=== PATIENT | female | born 1960 | race Caucasian/White ===

== ENCOUNTER → 2017-12-29 | Outpatient (CLI) | payer MEDICARE ==
--- NOTE | 2017-12-29 10:44 | RADIOLOGY REPORT (SQ) ---
EXAM DESCRIPTION: CT LUNG CANCER SCREENING COMPLETED DATE/TIME: 12/29/2017 9:24 am REASON FOR STUDY: NICOTINE DEPENDENCE Z12.2 ENCNTR SCREEN FOR MALIGNANT NEOPLASM OF RESPIRATORY OR Z12.31 ENCNTR SCREEN MAMMOGRAM FOR MALIGNANT NEOPLASM OF EDMOND F17.210 NICOTINE DEPENDENCE, CIGARETTE S, UNCOMPLICATED Has the patient had a Chest CT scan within the past year? No Was the patient offered tobacco cessation counseling? Yes Was the patient engaged in shared decision making for this test? Yes Does the patient have signs or symptoms of Lung Cancer? No Is the patient a smoker? Yes How many packs per year? 450 How many years since quitting smoking? Not applicable Patients age: 57 COMPARISON: None. TECHNIQUE: Low Dose CT scan performed of the chest without intravenous contrast for purposes of scre ening for lung cancer. Images reviewed with lung, soft tissue and bone windows. Reconstructed coron al and sagittal MPR images reviewed. All images stored on PACS. All CT scanners at this facility use dose modulation, iterative reconstruction, and/or weight based d osing when appropriate to reduce radiation dose to as low as reasonably achievable (ALARA). [facility]: Dose Right [facility]: CareDose [facility]: Dose Right [facility]: Teradose 4D [facility]: [employer] RADIATION DOSE: CT Rad equipment meets quality standard of care and radiation dose reduction techniq ues were employed. CTDIvol: 2.1 mGy. DLP: 73 mGy-cm. mGy. . LIMITATIONS: No technical limitations. FINDINGS: LUNG NODULES: Less than 4 mm right upper lobe nodule image 143. Pleural-based less than 5 mm nodule along the right lower lobe/major fissure image 247. REMAINING LUNGS AND PLEURA: No pleural effusions or calcifications. No pneumothorax. Obstructiv e lung disease is present with bandlike scarring at both bases. HILAR AND MEDIASTINAL STRUCTURES: No identified masses. No abnormal nodes. HEART AND VASCULAR STRUCTURES: No aortic aneurysm. No pericardial effusion. No cardiac devices. CORONARY ARTERY CALCIFICATIONS: No significant calcifications. UPPER ABDOMEN, THYROID, BONES, OTHER SOFT TISSUES: No significant findings. IMPRESSION: BENIGN FINDINGS IN THE LUNGS. NO OTHER CLINICALLY SIGNIFICANT/POTENTIALLY CLINICALLY SIGNIFICANT FINDINGS LUNGRADS: LUNGRADS: 2 BENIGN APPEARANCE OR BEHAVIOR. NODULES WITH A VERY LOW LIKELIHOOD OF BECOMING A CLINICALLY ACTIVE CANCER DUE TO SIZE OR LACK OF GROWTH. MODIFIER: NONE. RECOMMENDATION: Continue annual screening with LDCT in 12 months. COMMENT: CRITERIA: Solid nodule(s): < 6 mm; new < 4 mm. Part solid nodule(s): < 6 mm total diameter on baseline screening. Non solid nodule(s) (GGN): < 20 mm OR ? 20 and unchanged or slowly growing. Category 3 or 4 modules unchanged for ? 3 months. TECHNICAL DOCUMENTATION: JOB ID: [id number] Quality ID # [id number]: Final reports with documentation of one or more dose reduction techniques (e.g., Au tomated exposure control, adjustment of the mA and/or kV according to patient size, use of iterative reconstruction technique) 2010 [facility] Reading location - IP/workstation name: [email or web address]
--- NOTE | 2017-12-29 15:59 | WOMENS IMAGING REPORT ---
EXAM DESCRIPTION: BILAT SCREENING MAMMO W/CAD COMPLETED DATE/TIME: 12/29/2017 10:17 am REASON FOR STUDY: SCREENING MAMMO Z12.2 ENCNTR SCREEN FOR MALIGNANT NEOPLASM OF RESPIRATORY OR Z12. 31 ENCNTR SCREEN MAMMOGRAM FOR MALIGNANT NEOPLASM OF [place]D F17.210 NICOTINE DEPENDENCE, CIGARETTES, U NCOMPLICATED COMPARISON: 2008 to 2015 TECHNIQUE: Standard craniocaudal and mediolateral oblique views of each breast recorded using BISciencea l acquisition. LIMITATIONS: None. FINDINGS: No masses, calcifications or architectural distortion. No areas of suspicion. Read with the assistance of CAD. .[facility] - R2 Cenova Version 1.3 .[facility] Imaging - R2 Cenova Version 1.3 .[facility] - R2 Cenova Version 2.4 .[facility] - R2 Cenova Version 2.4 .[facility] - R2 Status Controller Version 9.2 IMPRESSION: NORMAL MAMMOGRAM. BIRADS 1. BREAST DENSITY: b. There are scattered areas of fibroglandular density. BIRAD: 1 NEGATIVE RECOMMENDATION: ROUTINE SCREENING COMMENT: The patient has been notified of the results by letter per SA requirements. Additional no tification policies are in place for contacting patient with suspicious or incomplete findings. Quality ID #[id number]: The [employer] recommends an annual screening mammogram for women aged 40 years or over. This facility utilizes a reminder system to ensure that all patients receive reminder letters, and/or direct phone calls for appointments. This includes reminders for routine scr eening mammograms, diagnostic mammograms, or other Breast Imaging Interventions when appropriate. Th is patient will be placed in the appropriate reminder system. The [employer] (ACR) has developed recommendations for screening MRI of the breast s in certain patient populations, to be used in conjunction with mammography. Breast MRI surveillanc e may be appropriate for women with more than 20% lifetime risk of developing breast cancer as deter mined by genetic testing, significant family history of the disease, or history of mantle radiation f or Hodgkins Disease. ACR Practice Guidelines 2008. TECHNICAL DOCUMENTATION: FINDING NUMBER: (1) ASSESSMENT: (1) JOB ID: [id number] [employer]- All Rights Reserved Reading location - IP/workstation name: [email or web address]
== END ==
LOC: RAD 09:43
PROVIDERS: ATTEND Internal Medicine
DX: Z12.31 Encounter for screening mammogram for malignant neoplasm of breast (principal); Z12.2 Encounter for screening for malignant neoplasm of respiratory organs; F17.210 Nicotine dependence, cigarettes, uncomplicated
CPT/HCPCS: 77067; G0297

== ENCOUNTER → 2018-03-23 | Outpatient (CLI) | payer MEDICARE ==
--- NOTE | 2018-03-23 16:33 | RADIOLOGY REPORT (SQ) ---
EXAM DESCRIPTION: PHYSIO ARTERIAL LTD COMPLETED DATE/TIME: 03/23/2018 3:30 pm REASON FOR STUDY: RACHEL, POLYNEUROPATHY G62.9 POLYNEUROPATHY, UNSPECIFIED COMPARISON: None. EXAM PARAMETERS: TECHNIQUE: Brachial blood pressure obtained. Pressures obtained of the peripheral v essels at the level of the ankle. Ankle brachial indices calculated. LIMITATIONS: None. FINDINGS: RIGHT RACHEL: 0.85 to 0.91 LEFT RACHEL: 0.82 to 0.98 IMPRESSION: Mildly depressed bilateral RACHEL, indicates mild lower extremity arterial obstructive crandall ge COMMENT: [facility] NORMAL: Greater than 1.0 MINIMAL DISEASE: 0.9 to 1.0 CLAUDICATION: 0.5 to 0.9 SEVERE ARTERIAL DISEASE: Less than 0.5 [facility] NORM[facility]: Greater than 1.0 (1.2 If Heavy Calcifications) NORMAL TO MILD ISCHEMIA: 0.8 to 1.0 MODERATE ISCHEMIA: 0.4 to 0.8 SEVERE ISCHEMIA: Less than 0.4 TECHNICAL DOCUMENTATION: JOB ID: [id number] [employer]- All Rights Reserved Reading location - IP/workstation name: [email or web address]
== END ==
LOC: SP 13:34
PROVIDERS: ATTEND Internal Medicine
DX: G62.9 Polyneuropathy, unspecified (principal)
CPT/HCPCS: 93922

== ENCOUNTER 2018-07-26 07:11 | Day surgery (SDC) | payer MEDICARE ==
[2018-07-26] MEDS ORDERED: PROPOFOL INJ 200 MG/20 ML VIAL IV ONE (07:27)
[2018-07-26 09:16] VITALS: BP 151/62
--- NOTE | 2018-07-26 13:18 | Operative Report ---
Operative Report DATE OF SURGERY: 07/26/18 Operative Report: The risks, benefits and alternatives of the procedure including the risk of bleeding, perforation requiring surgery are explained to the patient in detail and informed consent is obtained. Patient is brought back to the endoscopy suite and placed in the left, lateral decubital position. Timeout was called. Propofol medication is administered. A rectal examination is done which did not reveal any masses, tears or fissures. An Olympus videoscope was introduced into the patient's rectum. The scope was then carefully advanced all the way to the cecum. The cecum was identified by the usual anatomical landmarks including the ileocecal valve as well as the appendiceal office. Prep was poor. Scope was then sequentially pulled back via the various segments of the colon including the ascending colon, hepatic flexure, transverse colon, splenic flexure, descending colon and finally into the rectosigmoid portions of the colon. Retroflexion maneuvers performed. The risks benefits and alternatives of the procedure explained to the patient in detail and informed consent is obtained.A GIF Olympus video scope was inserted into the patient's mouth and hypopharynx, the esophagus is identified intubated and insufflated, the scope was then advanced through the esophagus stomach and duodenum ,retroflexion maneuver is done, the esophagus stomach and first and second portions of the duodenum examined PREOPERATIVE DIAGNOSIS: Personal history of polyps. Dysphagia POSTOPERATIVE DIAGNOSIS: Schatzki's ring status post breakage. Gastritis status post biopsy for Helicobacter pylori. Duodenitis. Right side colon inflammation status post biopsy rule out lymphocytic, microscopic, collagenous colitis OPERATION: Colonoscopy with biopsy. EGD with biopsy SURGEON: HALEIGH ELENA ANESTHESIA: LMAC TISSUE REMOVED OR ALTERED: As noted above. COMPLICATIONS: None. ESTIMATED BLOOD LOSS: None. INTRAOPERATIVE FINDINGS: As noted above. PROCEDURE: Patient tolerated the procedure well. No immediate postprocedure complications are noted. Patient discharged in good condition. Discharge date 07/26/2018. Discharge diet: Regular. Discharge activity: Regular. 2-3-week follow-up to discuss findings. Patient is instructed call the office or proceed to the emergency room should there be any further questions. Wait on the pathology. 5-year surveillance colonoscopy.
== END 2018-07-26 09:05 | disposition home or self-care (01) ==
LOC: END 07:11
PROVIDERS: ATTEND Internal Medicine Gastroenterology
DX: K22.2 Esophageal obstruction (principal); K20.9 Esophagitis, unspecified; K29.50 Unspecified chronic gastritis without bleeding; K29.80 Duodenitis without bleeding; K52.9 Noninfective gastroenteritis and colitis, unspecified; K92.1 Melena; Z86.010 Personal history of colon polyps; I10 Essential (primary) hypertension; E11.9 Type 2 diabetes mellitus without complications; J44.9 Chronic obstructive pulmonary disease, unspecified; F17.210 Nicotine dependence, cigarettes, uncomplicated; M19.90 Unspecified osteoarthritis, unspecified site; E11.40 Type 2 diabetes mellitus with diabetic neuropathy, unspecified; Z79.899 Other long term (current) drug therapy; Z79.51 Long term (current) use of inhaled steroids; Z79.4 Long term (current) use of insulin; Z91.040 Latex allergy status
CPT/HCPCS: 43239; 45380; 82962; 88342 ×2; 88305 ×2; 88313 ×2; J2704; 813

== ENCOUNTER 2018-10-20 07:18 | Inpatient (IN) | payer MEDICARE ==
[2018-10-20] MEDS ORDERED: IPRATROPIUM/ALBUTEROL 0.5-2.5 MG/3 ML AMPUL NEB ONE (07:47)
--- NOTE | 2018-10-20 07:51 | ER Document Report ---
ED Respiratory Problem - General Chief Complaint: Shortness Of Breath Stated Complaint: SHORTNESS OF BREATH Time Seen by Provider: 10/20/18 07:34 Primary Care Provider: ASHLEY FRANKLIN MD [Primary Care Provider] - Follow up as needed Notes: 58-year-old female presents to the emergency part complaining of difficulty breathing. Patient stated began last night. The patient stated she felt some heaviness in her chest and tightness. She began having trouble breathing. When EMS arrived patient had sats in the 60s. They gave the patient aerosol treatment and a dose of Solu-Medrol. The patient has a history of a broken foot and is in a walking boot on the left. She denies any fever chills or sore throat ever she has had some urinary symptoms and saw her primary care doctor yesterday and placed on antibiotic for that. Denies any abdominal pain. Stated the heaviness she felt in her chest would let her breathe she rated as moderate to severe. She denies any chest pain proper. TRAVEL OUTSIDE OF THE [place] IN LAST 30 DAYS: No - Related Data Allergies/Adverse Reactions: latex Allergy (Severe, Verified 07/26/18 06:51) Anaphylaxis Past Medical History - Social History Smoking Status: Former Smoker Family History: Reviewed & Not Pertinent - Past Medical History Cardiac Medical History: Reports: Hx Hypertension Denies: Hx Coronary Artery Disease, Hx Heart Attack Pulmonary Medical History: Reports: Hx Asthma, Hx COPD Denies: Hx Bronchitis, Hx Pneumonia Neurological Medical History: Denies: Hx Cerebrovascular Accident, Hx Seizures Endocrine Medical History: Reports: Hx Diabetes Mellitus Type 2 Musculoskeletal Medical History: Reports Hx Arthritis - NECK - Immunizations Hx Diphtheria, Pertussis, Tetanus Vaccination: Yes Hx Pneumococcal Vaccination: 09/21/14 Review of Systems - Review of Systems Constitutional: denies: Chills, Fever Cardiovascular: Chest pain, Dyspnea. denies: Edema Respiratory: Cough, Short of breath, Wheezing Genitourinary: Dysuria Neurological/Psychological: denies: Headaches -: Yes All other systems reviewed and negative Physical Exam - Vital signs Vitals: Pulse Resp BP Pulse Ox 78 20 150/70 H 89 L 10/20/18 07:31 10/20/18 07:31 10/20/18 07:31 10/20/18 07:31 - Notes Notes: GENERAL_APPEARANCE: well_nourished, alert, cooperative VITALS: reviewed, see vital signs table. HEAD: no_swelling\tenderness on the head. EYES: PERRL, EOMI, conjunctiva_clear. NOSE: Clear_nasal_discharge. MOUTH: (-)decreased moisture. THROAT: no_throat_inflammation, no_airway_obstruction. no_lymphadenopathy NECK: supple, no_neck_tenderness, (-)thyromegaly. BACK: no_back_tenderness. CHEST_WALL: no_chest_tenderness. LUNGS: Scattered_wheezing, no_rales, no_rhonchi, (-)accessory muscle use, good air exchange bilateral. HEART: normal_rate, normal_rhythm, normal_S1, normal_S2, (-)S3, (-)S4, no_m urmur, no_rub. ABDOMEN: normal_BS, soft, no_abd_tenderness, (-)guarding, (-)rebound, no_organomegaly, no_abd_masses. EXTREMITIES: good pulses in all_extremities, left leg in a boot, no_edema. SKIN: warm, dry, good_color, no_rash. MENTAL_STATUS: speech_clear, oriented_X_3, normal_affect, respond s_appropriately to questions. Course - Re-evaluation Re-evalutation: 10/20/18 07:50 58-year-old female arrives with difficulty breathing. Patient was wheezing will give her aerosol treatments here EMS already give her aerosol and Solu-Medrol. Oxygen. She has an oxygen requirement of 4 L to maintain a sat of 90% here. She does have a boot on will CT the chest to rule out PE. 10/20/18 10:02 Patient is doing better after aerosol treatments steroids and antibiotics. Patient still has a 3-4 L oxygen requirement. Patient was incidentally found to have a urinary tract infection the Rocephin should cover this. The patient is doing better but with the oxygen requirements we will hospitalize the patient continue with pulmonary toilet aerosol treatments steroids. I spoke with the hospitalist service who is in agreement for hospitalization. - Vital Signs Vital signs: Temp Pulse Resp BP Pulse Ox 98.1 F 78 20 150/70 H 89 L 10/20/18 07:47 10/20/18 07:31 10/20/18 07:31 10/20/18 07:31 10/20/18 07:31 - Laboratory Result Diagrams: 10/20/18 07:40 10/20/18 07:40 Laboratory results interpreted by me: 10/20/18 10/20/18 10/20/18 07:40 07:40 07:40 Hgb 15.6 H VBG pH 7.29 L Creatinine 0.51 L Glucose 252 H Urine Glucose (UA) Urine Blood Ur Leukocyte Esterase Urine Ascorbic Acid 10/20/18 09:21 Hgb VBG pH Creatinine Glucose Urine Glucose (UA) >=500 H Urine Blood SMALL H Ur Leukocyte Esterase LARGE H Urine Ascorbic Acid 20 H - Diagnostic Test Radiology reviewed: Reports reviewed Radiology results interpreted by me: 10/20/18 10:02 Chest X-Ray 10/20/18 07:46 IMPRESSION: 1. Mild prominence of the interstitial markings, particularly in the lower lung zones, likely correlate to the LDCT chest examination dated 12/29/2017. 2. No acute pulmonary consolidation. Chest/Abdomen CTA 10/20/18 07:47 IMPRESSION: 1. Negative examination for pulmonary embolism. 2. Heterogeneous opacity of the right lung base with underlying scarring or atelectasis, findings concerning for infection or aspiration. 3. Emphysema. 4. Coronary artery disease. - EKG Interpretation by Me EKG shows normal: Sinus rhythm Rate: Normal - 79 Rhythm: NSR When compared to previous EKG there are: No significant change Discharge - Discharge Clinical Impression: COPD with exacerbation, UTI (urinary tract infection) Condition: Fair Disposition: ADMITTED INPATIENT Admitting Provider: Hospitalist Unit Admitted: Telemetry Referrals: ASHLEY FRANKLIN MD [Primary Care Provider] - Follow up as needed
--- NOTE | 2018-10-20 07:58 | EKG REPORT ---
SEVERITY:- ABNORMAL ECG - SINUS RHYTHM PROBABLE INFERIOR INFARCT, OLD CONSIDER ANTERIOR INFARCT : Confirmed by: Don Madrid MD 20-Oct-2018 07:57:01
[2018-10-20 08:01] LABS: ABSOLUTE EOSINOPHILS # (AUTO) 0.1 10^3/uL (0.0-0.6); ABSOLUTE MONOCYTES (AUTO) 0.3 10^3/uL (0.1-1.4); ABSOLUTE NEUT (AUTO) 5.2 10^3/uL (1.7-8.2); BASOPHILS % (AUTO) 0.6 % (0-2); EOSINOPHILS % (AUTO) 1.8 % (0-6); HEMATOCRIT 46.7 % (36.0-47.0); HEMOGLOBIN 15.6 g/dL (12.0-15.5); MEAN CORPUSCULAR HEMOGLOBIN 29.6 pg (27.0-33.4); MEAN CORPUSCULAR HGB CONC 33.4 g/dL (32.0-36.0); MEAN CORPUSCULAR VOLUME 89 fl (80-97); MONOCYTES % (AUTO) 4.3 % (3-13); PLATELET COUNT 213 10^3/uL (150-450); RED BLOOD COUNT 5.27 10^6/uL (3.72-5.28); RED CELL DISTRIBUTION WIDTH 13.7 % (11.5-14.0); SEGMENTED NEUTROPHILS % (AUTO) 67.3 % (42-78); TOTAL CELLS COUNTED % (AUTO) 100 %; VENOUS BLOOD HCO3 28.3 mmol/L (20-32); VENOUS BLOOD PCO2 60.4 mmHg (35-63); VENOUS BLOOD PH 7.29 (7.30-7.42); WHITE BLOOD COUNT 7.7 10^3/uL (4.0-10.5)
[2018-10-20] MEDS: ALBUTEROL SULFATE 0.083% NEB 2.5 MG/3 ML AMPUL NEB SCH (08:03)
[2018-10-20 08:10] LABS: INTERNATIONAL RATION (INR) 0.83; PROTHROMBIN TIME 11.8 SEC (11.4-15.4)
--- NOTE | 2018-10-20 08:18 | RADIOLOGY REPORT (SQ) ---
EXAM DESCRIPTION: CHEST SINGLE VIEW COMPLETED DATE/TIME: 10/20/2018 7:52 am REASON FOR STUDY: SOB COMPARISON: LDCT chest examination dated 12/29/2017. EXAM PARAMETERS: NUMBER OF VIEWS: One view. TECHNIQUE: Single frontal radiographic view of the chest acquired. RADIATION DOSE: NA LIMITATIONS: None. FINDINGS: LUNGS AND PLEURA: Mild prominence of the interstitial markings, particularly in the lower lung zones. These findings likely correlate to the LDCT chest examination dated 12/29/2017 and are o n a chronic basis. No acute pulmonary consolidation. No pneumothorax or pleural effusion. MEDIASTINUM AND HILAR STRUCTURES: No masses. Contour normal. HEART AND VASCULAR STRUCTURES: Heart normal in size. Normal vasculature. BONES: No acute findings. HARDWARE: Anterior fusion visualized mid-lower cervical spine OTHER: No other significant finding. IMPRESSION: 1. Mild prominence of the interstitial markings, particularly in the lower lung zones, likely correlate to the LDCT chest examination dated 12/29/2017. 2. No acute pulmonary consolidation. TECHNICAL DOCUMENTATION: JOB ID: [id number] [employer]- All Rights Reserved Reading location - IP/workstation name: [email or web address]
[2018-10-20 08:20] LABS: ALANINE AMINOTRANSFERASE 27 U/L (9-52); ALBUMIN 4.1 g/dL (3.5-5.0); ALKALINE PHOSPHATASE 112 U/L (38-126); ANION GAP 8 (5-19); ASPARTATE AMINO TRANSFERASE 15 U/L (14-36); BILIRUBIN,DIRECT 0.3 mg/dL (0.0-0.4); BILIRUBIN,TOTAL 0.4 mg/dL (0.2-1.3); BLOOD UREA NITROGEN 14 mg/dL (7-20); CALCIUM 9.5 mg/dL (8.4-10.2); CARBON DIOXIDE 30 mmol/L (22-30); CHLORIDE 103 mmol/L (98-107); GLUCOSE 252 mg/dL (75-110); POTASSIUM 4.8 mmol/L (3.6-5.0); SODIUM 141.2 mmol/L (137-145); TOTAL PROTEIN 6.8 g/dL (6.3-8.2)
[2018-10-20 08:31] LABS: NT PRO BNP 46 pg/mL (5-900)
[2018-10-20 08:32] LABS: TROPONIN I < 0.012 ng/mL
--- NOTE | 2018-10-20 09:18 | RADIOLOGY REPORT (SQ) ---
EXAM DESCRIPTION: CTA CHEST COMPLETED DATE/TIME: 10/20/2018 8:59 am REASON FOR STUDY: SOB COMPARISON: Chest radiograph, 10/20/2018, CT chest, 12/29/2017 TECHNIQUE: CT scan of the chest performed using helical scanning technique with dynamic intravenous contrast injection. Images reviewed with lung, soft tissue and bone windows. Reconstructed coronal and sagittal MPR images reviewed. Additional 3 dimensional post-processing performed to develop Maximal Intensity Projection images (AK P). All images stored on PACS. All CT scanners at this facility use dose modulation, iterative reconstruction, and/or weight based d osing when appropriate to reduce radiation dose to as low as reasonably achievable (ALARA). [facility]: Dose Right [facility]: CareDose [facility]: Dose Right [facility]: Teradose 4D [facility]: [employer] Sensors CONTRAST TYPE AND DOSE: contrast/concentration: Isovue 350.00 mg/ml; Total Contrast Delivered: 71.0 ml; Total Saline Delivered: 81.7 ml Contrast bolus optimized for the pulmonary arteries. Not diagnostic for the aorta. RENAL FUNCTION: GFR > 60. RADIATION DOSE: CT Rad equipment meets quality standard of care and radiation dose reduction techniq ues were employed. CTDIvol: 13.2 - 15.8 mGy. DLP: 556 mGy-cm. . LIMITATIONS: None. FINDINGS: LUNGS AND PLEURA: Redemonstrated mild centrilobular and paraseptal emphysema. There are s table small bilateral pulmonary nodules. Heterogeneous opacity of the right lung base with underlyin g scarring or atelectasis. AORTA AND GREAT VESSELS: No aneurysm. Contrast bolus not optimized for the aorta. HEART: No pericardial effusion. Coronary artery calcifications. PULMONARY ARTERIES: No emboli visualized in the main pulmonary arteries or the segmental branches. HILAR AND MEDIASTINAL STRUCTURES: No identified masses or abnormal nodes. HARDWARE: None in the chest. UPPER ABDOMEN: No significant findings. Limited exam. THYROID AND OTHER SOFT TISSUES: No masses. No adenopathy. BONES: No acute or significant finding. 3D MIPS: Confirm above findings. OTHER: No other significant finding. IMPRESSION: 1. Negative examination for pulmonary embolism. 2. Heterogeneous opacity of the right lung base with underlying scarring or atelectasis, findings co ncerning for infection or aspiration. 3. Emphysema. 4. Coronary artery disease. COMMENT: Quality ID # [id number]: Final reports with documentation of one or more dose reduction techniques (e.g., Automated exposure control, adjustment of the mA and/or kV according to patient size, use of iterative reconstruction technique) TECHNICAL DOCUMENTATION: JOB ID: [id number] [employer]- All Rights Reserved Reading location - IP/workstation name: [email or web address]
[2018-10-20] MEDS ORDERED: CEFTRIAXONE 1 GM/D5W RTU 1 GM/50 ML RTUPB IV ONE (09:25)
[2018-10-20 09:59] LABS: APPEARANCE,URINE CLOUDY; BILIRUBIN,URINE NEGATIVE (NEGATIVE); COLOR,URINE YELLOW; GLUCOSE, URINE >=500 mg/dL (NEGATIVE); KETONES,URINE NEGATIVE (NEGATIVE); LEUKOCYTE ESTERASE,URINE LARGE (NEGATIVE); NITRITE,URINE NEGATIVE (NEGATIVE); PROTEIN,URINE NEGATIVE (NEGATIVE); UROBILINOGEN,URINE NEGATIVE mg/dL (<2.0)
[2018-10-20] MEDS ORDERED: NICOTINE 21 MG/24 HR PATCH.TD24 TD ONE (10:23)
[2018-10-20] MEDS ORDERED: NORMAL SALINE 1000 ML 1,000 ML IV PRN (12:28)
[2018-10-20] MEDS ORDERED: PROMETHAZINE HCL INJ 25 MG/1 ML VIAL IV PRN (12:28)
[2018-10-20] MEDS ORDERED: ACETAMINOPHEN 325 MG TABLET PO PRN (12:28)
[2018-10-20] MEDS ORDERED: GLUCAGON,HUMAN RECOMB 1 MG INJ IM PRN (12:32)
[2018-10-20] MEDS ORDERED: DEXTROSE 40% GEL 15 GM TUBE PO PRN ×2 (12:32)
[2018-10-20] MEDS ORDERED: DEXTROSE 50%-WATER 25 GM/50 ML DISP.SYRIN IV PRN ×2 (12:32)
--- NOTE | 2018-10-20 12:41 | PDOC H&P ---
History of Present Illness Admission Date/PCP: 10/20/18 10:05 ASHLEY FRANKLIN MD History of Present Illness: JIGAR GUNN is a 58 year old female past medical history of uncontrolled diabetes, hypertension, COPD current heavy smoker not on home oxygen. Patient presented to ED complaining of shortness of breath, chest heaviness and tightness starting at 6 AM this morning, which was constant, nonradiating, 8/10 on severity scale, relieved by sitting up, resolved when she got to ED. EMS was called and patient was found to be hypoxic with O2 saturation in the 60s, patient was started on breathing treatment and Solu-Medrol and was brought to ED. She is also stating that she had some urinary symptoms and yesterday saw her PCP and was placed on antibiotics. In ED she was found to be saturating 89% on room air, systolic blood pressure of 150/70, and tachypneic. EKG sinus rhythm, troponins less than 0.012, BNP 46, CBC 7.7, CMP within normal limits except for glucose of 252. CTA negative for PE but positive for heterogeneous opacity of the right lung base with underlying scarring or atelectasis concerning for infection or aspiration. UA positive for large leukocyte esterase and WBC of more than 182. Denies any history of coronary artery disease stating she had a complete negative workup as outpatient several years ago. In ED she received 1 dose of ceftriaxone, neb treatments. Past Medical History Cardiac Medical History: Reports: Hypertension Denies: Coronary Artery Disease, Myocardial Infarction Pulmonary Medical History: Reports: Asthma, Chronic Obstructive Pulmonary Disease (COPD) Denies: Bronchitis, Pneumonia Neurological Medical History: Denies: Seizures Endocrine Medical History: Reports: Diabetes Mellitus Type 2 Musculoskeltal Medical History: Reports: Arthritis - NECK Hematology: Denies: Anemia Social History Smoking Status: Former Smoker Family History Family History: Reviewed & Not Pertinent Parental Family History Reviewed: Yes Children Family History Reviewed: Yes Sibling(s) Family History Reviewed.: Yes Medication/Allergy Home Medications: Atorvastatin Calcium [Lipitor 20 mg Tablet] 20 mg PO DAILY 10/20/18 Cyclobenzaprine HCl [Flexeril 10 mg Tablet] 10 mg PO TID 10/20/18 Gabapentin [Neurontin 400 mg Capsule] 1,200 mg PO Q8 10/20/18 Losartan Potassium [Cozaar 25 mg Tablet] 25 mg PO DAILY 10/20/18 Meloxicam [Mobic] 15 mg PO DAILY 10/20/18 Metformin HCl [Glucophage 500 mg Tablet] 1,000 mg PO BID 10/20/18 Omeprazole 40 mg PO Q6AM 10/20/18 Sertraline HCl [Zoloft] 200 mg PO DAILY 10/20/18 Allergies/Adverse Reactions: latex Allergy (Severe, Verified 07/26/18 06:51) Anaphylaxis Review of Systems Review of Systems: As per HPI. Physical Exam Vital Signs: Temp Pulse Resp BP Pulse Ox 98.1 F 78 25 H 100/61 93 10/20/18 07:47 10/20/18 07:31 10/20/18 12:01 10/20/18 12:00 10/20/18 12:01 Intake & Output 10/19/18 10/20/18 10/21/18 06:59 06:59 06:59 Intake Total 50 Balance 50 Weight 74.389 kg General appearance: PRESENT: no acute distress, well-developed, well-nourished Head exam: PRESENT: atraumatic, normocephalic Neck exam: ABSENT: carotid bruit, JVD, lymphadenopathy, thyromegaly Respiratory exam: PRESENT: clear to auscultation sammy. ABSENT: rales, rhonchi, wheezes Cardiovascular exam: PRESENT: RRR. ABSENT: diastolic murmur, rubs, systolic murmur GI/Abdominal exam: PRESENT: normal bowel sounds, soft. ABSENT: distended, guarding, mass, organolmegaly, rebound, tenderness Musculoskeletal exam: PRESENT: other - Patient wearing a brace in the left foot for the history of a broken foot last year. Neurological exam: PRESENT: alert, awake, oriented to person, oriented to place, oriented to time, oriented to situation, CN II-XII grossly intact. ABSENT: mot or sensory deficit Skin exam: PRESENT: dry, intact, warm. ABSENT: cyanosis, rash Results Laboratory Results: 10/20/18 07:40 10/20/18 07:40 10/20/18 10/20/18 10/20/18 07:40 07:40 07:40 WBC 7.7 RBC 5.27 Hgb 15.6 H Hct 46.7 MCV 89 MCH 29.6 MCHC 33.4 RDW 13.7 Plt Count 213 Seg Neutrophils % 67.3 Lymphocytes % 26.0 Monocytes % 4.3 Eosinophils % 1.8 Basophils % 0.6 Absolute Neutrophils 5.2 Absolute Lymphocytes 2.0 Absolute Monocytes 0.3 Absolute Eosinophils 0.1 Absolute Basophils 0.0 VBG pH VBG pCO2 VBG HCO3 VBG Base Excess Sodium 141.2 Potassium 4.8 Chloride 103 Carbon Dioxide 30 Anion Gap 8 BUN 14 Creatinine 0.51 L Est GFR ( Amer) > 60 Est GFR (Non-Af Amer) > 60 Glucose 252 H Lactic Acid 1.4 Calcium 9.5 Total Bilirubin 0.4 AST 15 ALT 27 Alkaline Phosphatase 112 Total Protein 6.8 Albumin 4.1 Urine Color Urine Appearance Urine pH Ur Specific [place] Urine Protein Urine Glucose (UA) Urine Ketones Urine Blood Urine Nitrite Ur Leukocyte Esterase Urine WBC (Auto) Urine RBC (Auto) 10/20/18 10/20/18 07:40 09:21 WBC RBC Hgb Hct MCV MCH MCHC RDW Plt Count Seg Neutrophils % Lymphocytes % Monocytes % Eosinophils % Basophils % Absolute Neutrophils Absolute Lymphocytes Absolute Monocytes Absolute Eosinophils Absolute Basophils VBG pH 7.29 L VBG pCO2 60.4 VBG HCO3 28.3 VBG Base Excess 0 Sodium Potassium Chloride Carbon Dioxide Anion Gap BUN Creatinine Est GFR ( Amer) Est GFR (Non-Af Amer) Glucose Lactic Acid Calcium Total Bilirubin AST ALT Alkaline Phosphatase Total Protein Albumin Urine Color YELLOW Urine Appearance CLOUDY Urine pH 5.0 Ur Specific [place] 1.040 Urine Protein NEGATIVE Urine Glucose (UA) >=500 H Urine Ketones NEGATIVE Urine Blood SMALL H Urine Nitrite NEGATIVE Ur Leukocyte Esterase LARGE H Urine WBC (Auto) >182 Urine RBC (Auto) 17 10/20/18 07:40 Troponin I < 0.012 NT-Pro-B Natriuret Pep 46 Impressions: Chest X-Ray 10/20/18 07:46 IMPRESSION: 1. Mild prominence of the interstitial markings, particularly in the lower lung zones, likely correlate to the LDCT chest examination dated 12/29/2017. 2. No acute pulmonary consolidation. Chest/Abdomen CTA 10/20/18 07:47 IMPRESSION: 1. Negative examination for pulmonary embolism. 2. Heterogeneous opacity of the right lung base with underlying scarring or atelectasis, findings concerning for infection or aspiration. 3. Emphysema. 4. Coronary artery disease. Assessment & Plan - Diagnosis (1) Acute respiratory failure with hypoxia Is this a current diagnosis for this admission?: Yes Plan: Likely due to underlying COPD exacerbation. Supplemental oxygen, duo nebs, IV steroids, Advair discus, as needed BiPAP. (2) UTI (urinary tract infection) Is this a current diagnosis for this admission?: Yes Plan: UA positive with large LE and WBC >182. Pt was started on Levofloxacin. (3) Diabetes Is this a current diagnosis for this admission?: Yes Plan: Accu-Cheks, sliding scale insulin, Lantus nightly, diabetic diet. Will adjust insulin dosage as needed. Restart home meds on discharge follow-up with PCP. (4) Hyperlipidemia Is this a current diagnosis for this admission?: Yes Plan: Lifestyle and diet modification. Continue statins. (5) Hypertension Is this a current diagnosis for this admission?: Yes Plan: Restart losartan. Monitor vitals. Adjust meds as needed. (6) Tobacco abuse Is this a current diagnosis for this admission?: Yes Plan: Advised strongly against continuing smoking. Will provide nicotine patch. (7) COPD with exacerbation Is this a current diagnosis for this admission?: Yes Plan: Per problem #1.
[2018-10-20] MEDS: IPRATROPIUM/ALBUTEROL 0.5-2.5 MG/3 ML AMPUL NEB SCH ×2 (14:28→20:18)
[2018-10-20] MEDS: GABAPENTIN 400 MG CAPSULE PO SCH ×2 (14:59→21:52)
[2018-10-20] MEDS: METHYLPREDNISOLONE INJ 40 MG/1 ML SDV IV SCH ×2 (15:00→21:52)
[2018-10-20] MEDS: HEPARIN SOD (PORCINE) 5,000 UNIT/ML 1 ML SYRINGE SUBCUT SCH ×2 (15:00→21:52)
[2018-10-20] MEDS: DOCUSATE SODIUM 100 MG CAPSULE PO SCH (20:08)
[2018-10-20] MEDS: INSULIN LISPRO 100 UNIT/ML 3 ML VIAL SUBCUT SCH ×2 (20:09→22:01)
[2018-10-20] MEDS ORDERED: INSULIN GLARGINE,HUM.REC.ANLOG 300 UNIT/3 ML INSULN.PEN SUBCUT SCH (22:00)
[2018-10-20] MEDS: FAMOTIDINE 20 MG TABLET PO SCH (22:03)
[2018-10-21] MEDS: IPRATROPIUM/ALBUTEROL 0.5-2.5 MG/3 ML AMPUL NEB SCH ×3 (02:20→14:12)
[2018-10-21] MEDS: METHYLPREDNISOLONE INJ 40 MG/1 ML SDV IV SCH ×2 (05:47→13:05)
[2018-10-21] MEDS: GABAPENTIN 400 MG CAPSULE PO SCH ×2 (05:47→13:05)
[2018-10-21] MEDS: HEPARIN SOD (PORCINE) 5,000 UNIT/ML 1 ML SYRINGE SUBCUT SCH ×2 (05:47→13:05)
[2018-10-21 06:46] LABS: ABSOLUTE LYMPHOCYTES (AUTO) 1.1 10^3/uL (0.5-4.7); ABSOLUTE MONOCYTES (AUTO) 0.3 10^3/uL (0.1-1.4); ABSOLUTE NEUT (AUTO) 12.6 10^3/uL (1.7-8.2); BASOPHILS % (AUTO) 0.3 % (0-2); HEMATOCRIT 43.5 % (36.0-47.0); HEMOGLOBIN 14.2 g/dL (12.0-15.5); LYMPHOCYTES % (AUTO) 7.6 % (13-45); MEAN CORPUSCULAR HEMOGLOBIN 28.8 pg (27.0-33.4); MEAN CORPUSCULAR HGB CONC 32.6 g/dL (32.0-36.0); MEAN CORPUSCULAR VOLUME 88 fl (80-97); MONOCYTES % (AUTO) 2.3 % (3-13); PLATELET COUNT 210 10^3/uL (150-450); RED BLOOD COUNT 4.93 10^6/uL (3.72-5.28); RED CELL DISTRIBUTION WIDTH 13.7 % (11.5-14.0); SEGMENTED NEUTROPHILS % (AUTO) 89.8 % (42-78); TOTAL CELLS COUNTED % (AUTO) 100 %; WHITE BLOOD COUNT 14.1 10^3/uL (4.0-10.5)
[2018-10-21 07:09] LABS: ALANINE AMINOTRANSFERASE 24 U/L (9-52); ALBUMIN 4.2 g/dL (3.5-5.0); ALKALINE PHOSPHATASE 99 U/L (38-126); ANION GAP 10 (5-19); ASPARTATE AMINO TRANSFERASE 14 U/L (14-36); BILIRUBIN,DIRECT 0.4 mg/dL (0.0-0.4); BILIRUBIN,TOTAL 0.4 mg/dL (0.2-1.3); BLOOD UREA NITROGEN 20 mg/dL (7-20); CALCIUM 9.6 mg/dL (8.4-10.2); CARBON DIOXIDE 27 mmol/L (22-30); CHLORIDE 105 mmol/L (98-107); GLUCOSE 320 mg/dL (75-110); SODIUM 141.7 mmol/L (137-145); TOTAL PROTEIN 6.8 g/dL (6.3-8.2)
[2018-10-21] MEDS ORDERED: DEXTROSE 40% GEL 15 GM TUBE PO PRN ×4 (08:00→08:14)
[2018-10-21] MEDS ORDERED: INSULIN LISPRO 100 UNIT/ML 3 ML VIAL SUBCUT SCH (08:00)
[2018-10-21] MEDS ORDERED: DEXTROSE 50%-WATER 25 GM/50 ML DISP.SYRIN IV PRN ×4 (08:00→08:14)
[2018-10-21] MEDS ORDERED: GLUCAGON,HUMAN RECOMB 1 MG INJ IM PRN ×2 (08:00→08:14)
[2018-10-21] MEDS: FAMOTIDINE 20 MG TABLET PO SCH (09:51)
[2018-10-21] MEDS: INSULIN LISPRO 100 UNIT/ML 3 ML VIAL SUBCUT SCH ×5 (09:59→17:50)
[2018-10-21] MEDS ORDERED: LOSARTAN POTASSIUM 25 MG TABLET PO SCH (10:00)
[2018-10-21] MEDS ORDERED: ATORVASTATIN CALCIUM 20 MG TABLET PO SCH (10:00)
[2018-10-21] MEDS ORDERED: LEVOFLOXACIN 750 MG/D5W RTU 750 MG/150 ML RTUPB IV SCH (10:00)
[2018-10-21] MEDS ORDERED: INSULIN GLARGINE,HUM.REC.ANLOG 300 UNIT/3 ML INSULN.PEN SUBCUT SCH ×3 (10:00→22:00)
[2018-10-21] MEDS: DOCUSATE SODIUM 100 MG CAPSULE PO SCH ×2 (10:01→17:51)
[2018-10-21] MEDS ORDERED: INSULIN LISPRO 100 UNIT/ML 3 ML VIAL SUBCUT ONE (10:45)
[2018-10-21] MEDS ORDERED: NICOTINE 21 MG/24 HR PATCH.TD24 TD SCH (13:00)
[2018-10-21] MEDS ORDERED: PROMETHAZINE HCL INJ 25 MG/1 ML VIAL IV PRN (13:30)
[2018-10-21] MEDS ORDERED: LEVOFLOXACIN 500 MG TABLET PO SCH (14:00)
[2018-10-21 16:29] VITALS: BP 134/59
--- NOTE | 2018-10-22 18:32 | PDOC DISCHARGE SUMMARY ---
General - Admit/Disc Date/PCP Admission Date/Primary Care Provider: 10/20/18 10:05 ASHLEY FRANKLIN MD Discharge Date: 10/21/18 - Discharge Diagnosis (1) Acute respiratory failure with hypoxia Is this a current diagnosis for this admission?: Yes (2) COPD with exacerbation Is this a current diagnosis for this admission?: Yes (3) UTI (urinary tract infection) Is this a current diagnosis for this admission?: Yes (4) Diabetes Is this a current diagnosis for this admission?: Yes (5) Hyperlipidemia Is this a current diagnosis for this admission?: Yes (6) Hypertension Is this a current diagnosis for this admission?: Yes (7) Tobacco abuse Is this a current diagnosis for this admission?: Yes - Additional Information Resuscitation Status: Full Code Home Medications: Atorvastatin Calcium [Lipitor 20 mg Tablet] 20 mg PO DAILY 10/20/18 Cyclobenzaprine HCl [Flexeril 10 mg Tablet] 10 mg PO TID 10/20/18 Gabapentin [Neurontin 400 mg Capsule] 1,200 mg PO Q8 10/20/18 Losartan Potassium [Cozaar 25 mg Tablet] 25 mg PO DAILY 10/20/18 Meloxicam [Mobic] 15 mg PO DAILY 10/20/18 Metformin HCl [Glucophage 500 mg Tablet] 1,000 mg PO BID 10/20/18 Omeprazole 40 mg PO Q6AM 10/20/18 Sertraline HCl [Zoloft] 200 mg PO DAILY 10/20/18 History of Present Illness History of Present Illness: JIGAR GUNN is a 58 year old female past medical history of uncontrolled diabetes, hypertension, COPD current heavy smoker not on home oxygen. Patient presented to ED complaining of shortness of breath, chest heaviness and tightness starting at 6 AM this morning, which was constant, nonradiating, 8/10 on severity scale, relieved by sitting up, resolved when she got to ED. EMS was called and patient was found to be hypoxic with O2 saturation in the 60s , patient was started on breathing treatment and Solu-Medrol and was brought to ED. She is also stating that she had some urinary symptoms and yesterday saw her PCP and was placed on antibiotics. In ED she was found to be saturating 89% on room air, systolic blood pressure of 150/70, and tachypneic. EKG sinus rhythm, troponins less than 0.012, BNP 46, CBC 7.7, CMP within normal limits except for glucose of 252. CTA negative for PE but positive for heterogeneous opacity of the right lung bas e with underlying scarring or atelectasis concerning for infection or aspiration. UA positive for large leukocyte esterase and WBC of more than 182. Denies any history of coronary artery disease stating she had a complete negative workup as outpatient several years ago. In ED she received 1 dose of ceftriaxone, neb treatments. Hospital Course Hospital Course: (1) Acute respiratory failure with hypoxia Likely due to underlying COPD exacerbation. Supplemental oxygen, duo nebs, IV steroids, Advair discus, as needed BiPAP. (2) COPD with exacerbation Per problem #1. (3) UTI (urinary tract infection) UA positive with large LE and WBC >182. Pt was started on Levofloxacin. Following day urine cutlures was positive for GNR pending susceptibility, but pt did not wanted to wait for the result and decided she was already being treated with Keflex by her PCP. (4) Diabetes Accu-Cheks, sliding scale insulin, Lantus nightly, diabetic diet. Will adjust insulin dosage as needed. Restart home meds on discharge follow-up with PCP. (5) Hyperlipidemia Lifestyle and diet modification. Continue statins. (6) Hypertension Restart losartan. Monitor vitals. Adjust meds as needed. (7) Tobacco abuse Advised strongly against continuing smoking. Will provide nicotine patch. Physical Exam Vital Signs: Temp Pulse Resp BP Pulse Ox 99.2 F 99 18 134/59 H 93 10/21/18 16:03 10/21/18 16:03 10/21/18 16:03 10/21/18 16:03 10/21/18 16:03 Intake & Output 10/21/18 10/22/18 10/23/18 06:59 06:59 06:59 Intake Total 350 Balance 350 Weight 75.5 kg Results Laboratory Results: 10/21/18 05:35 10/21/18 05:35 10/20/18 07:40 Troponin I < 0.012 NT-Pro-B Natriuret Pep 46 Impressions: Chest X-Ray 10/20/18 07:46 IMPRESSION: 1. Mild prominence of the interstitial markings, particularly in the lower lung zones, likely correlate to the LDCT chest examination dated 12/29/2017. 2. No acute pulmonary consolidation. Chest/Abdomen CTA 10/20/18 07:47 IMPRESSION: 1. Negative examination for pulmonary embolism. 2. Heterogeneous opacity of the right lung base with underlying scarring or atelectasis, findings concerning for infection or aspiration. 3. Emphysema. 4. Coronary artery disease. Qualifiers - * PATIENT BEING DISCHARGED WITH ANY OF THE FOLLOWING DIAGNOSIS: No
== END 2018-10-21 18:43 | disposition left against medical advice (07) | DRG 189 ==
LOC: ER 07:18 → EH 10:05 → 4S 15:24
PROVIDERS: ADMIT Internal Medicine; ATTEND Internal Medicine
PROC: 5A09357 Assistance with Respiratory Ventilation, Less than 24 Consecutive Hours, Continuous Positive Airway Pressure (ICD-10-PCS; principal; 2018-10-20)
DX: J96.01 Acute respiratory failure with hypoxia (principal); J44.1 Chronic obstructive pulmonary disease with (acute) exacerbation; N39.0 Urinary tract infection, site not specified; I10 Essential (primary) hypertension; J44.9 Chronic obstructive pulmonary disease, unspecified; M46.92 Unspecified inflammatory spondylopathy, cervical region; E11.65 Type 2 diabetes mellitus with hyperglycemia; E78.5 Hyperlipidemia, unspecified; F17.200 Nicotine dependence, unspecified, uncomplicated; Z91.040 Latex allergy status; Z99.81 Dependence on supplemental oxygen; Z79.899 Other long term (current) drug therapy; Z79.84 Long term (current) use of oral hypoglycemic drugs
CPT/HCPCS: 36415; 71045; 71275; 80053; 81001; 82803; 82962; 83036; 83605; 83880; 84484; 85025; 85610; 87040; 87086; 87088; 87186; 93005; 93010; 94640; 94660; 96365; 99285; J0696; J1644; J1815; J2920; J7620

== ENCOUNTER → 2019-01-27 | Outpatient (CLI) | payer MEDICARE ==
--- NOTE | 2019-01-27 18:22 | RADIOLOGY REPORT (SQ) ---
EXAM DESCRIPTION: CHEST 2 VIEWS COMPLETED DATE/TIME: 01/27/2019 6:12 pm REASON FOR STUDY: J44.9 CHRONIC OBSTRUCTIVE PULMONARY DISEASE, UNSPECIFIED COMPARISON: 10/20/2018 TECHNIQUE: Frontal and lateral radiographic views of the chest acquired. NUMBER OF VIEWS: Two view. LIMITATIONS: None. FINDINGS: LUNGS AND PLEURA: No pneumothorax. Similar chronic interstitial changes. No consolidatio n or pleural effusion. MEDIASTINUM AND HILAR STRUCTURES: Stable. HEART AND VASCULAR STRUCTURES: Stable. BONES: No acute findings. HARDWARE: None in the chest. OTHER: No other significant finding. IMPRESSION: NO ACUTE FINDINGS. TECHNICAL DOCUMENTATION: JOB ID: [id number] [employer]- All Rights Reserved Reading location - IP/workstation name: [email or web address]
== END ==
LOC: RAD 17:47
PROVIDERS: ATTEND Internal Medicine
DX: J44.9 Chronic obstructive pulmonary disease, unspecified (principal)
CPT/HCPCS: 71046

== ENCOUNTER 2019-02-04 11:24 | Emergency (ER) | payer MEDICARE ==
[2019-02-04] MEDS ORDERED: NORMAL SALINE 1000 ML 1,000 ML IV ONE ×2 (11:52→14:54)
--- NOTE | 2019-02-04 11:56 | ER Document Report ---
ED Medical Screen (RME) - General Chief Complaint: Weakness Stated Complaint: LEFT SHOULDER PAIN Time Seen by Provider: 02/04/19 11:49 Mode of Arrival: Wheelchair Information source: Relative Notes: 58-year-old female presents to ED for confusion lightheaded week and fell at the urgent care this morning. and family are with her states she has been tired confused weak and lightheaded for the last couple days. She is a diabetic and her sugar was 500 yesterday talk to him and got it down but her sugar usually runs between 2 and 300 it was 360 this morning they gave her her insulin and it came down to 306. states that she usually works much better with it over 200 because it is been high for so long. He states doctors been trying to get a carotid Doppler done and an MRI of the brain but insurance is not approved yet. States this morning they went to the urgent care and when she was getting out of the car to go into the urgent care she fell injuring both knees and her left shoulder. She complains of tenderness to palpation to both knees and the shoulder and is unable to bear weight on either knee. I have greeted and performed a rapid initial assessment of this patient. A comprehensive ED assessment and evaluation of the patient, analysis of test results and completion of medical decision making process will be conducted by an additional ED providers. Dictation of this chart was performed using voice recognition software; therefore, there may be some unintended grammatical errors. TRAVEL OUTSIDE OF THE [place] IN LAST 30 DAYS: No - Related Data Allergies/Adverse Reactions: latex Allergy (Severe, Verified 02/04/19 11:24) Anaphylaxis Past Medical History - Social History Frequency of alcohol use: Rare Drug Abuse: None - Past Medical History Cardiac Medical History: Reports: Hx Hypertension Denies: Hx Coronary Artery Disease, Hx Heart Attack Pulmonary Medical History: Reports: Hx Asthma, Hx COPD Denies: Hx Bronchitis, Hx Pneumonia Neurological Medical History: Denies: Hx Cerebrovascular Accident, Hx Seizures Endocrine Medical History: Reports: Hx Diabetes Mellitus Type 2 Renal/ Medical History: Denies: Hx Peritoneal Dialysis Musculoskeltal Medical History: Reports Hx Arthritis - NECK Psychiatric Medical History: Reports: Hx Depression Past Surgical History: Reports: Hx Appendectomy, Hx Breast Surgery - left breast cyst, Hx Section - X1, Hx Hysterectomy, Hx Orthopedic Surgery - fusion of c-spine, right elbow, carpal tunnel right, - Immunizations Hx Diphtheria, Pertussis, Tetanus Vaccination: Yes Influenza Administration Date for 06/2017 - 11/2017 Season: 06/21/18 Physical Exam - Vital signs Vitals: Temp Pulse Resp BP Pulse Ox 97.6 F 90 16 82/57 L 91 L 02/04/19 11:28 02/04/19 11:28 02/04/19 11:28 02/04/19 11:28 02/04/19 11:28 Course - Vital Signs Vital signs: Temp Pulse Resp BP Pulse Ox 97.6 F 90 16 92/48 L 91 L 02/04/19 11:28 02/04/19 11:28 02/04/19 11:28 02/04/19 11:49 02/04/19 11:28
[2019-02-04 12:23] LABS: HEMATOCRIT 48.2 % (36.0-47.0); HEMOGLOBIN 16.1 g/dL (12.0-15.5); MEAN CORPUSCULAR HEMOGLOBIN 28.6 pg (27.0-33.4); MEAN CORPUSCULAR HGB CONC 33.3 g/dL (32.0-36.0); MEAN CORPUSCULAR VOLUME 86 fl (80-97); PLATELET COUNT 322 10^3/uL (150-450); RED BLOOD COUNT 5.63 10^6/uL (3.72-5.28); RED CELL DISTRIBUTION WIDTH 13.5 % (11.5-14.0); WHITE BLOOD COUNT 21.1 10^3/uL (4.0-10.5)
--- NOTE | 2019-02-04 12:31 | RADIOLOGY REPORT (SQ) ---
EXAM DESCRIPTION: CT HEAD WITHOUT COMPLETED DATE/TIME: 02/04/2019 12:14 pm REASON FOR STUDY: Confusion weak tired COMPARISON: 02/19/2013 TECHNIQUE: Axial images acquired through the brain without intravenous contrast. Images reviewed wi th bone, brain and subdural windows. Additional sagittal and coronal reconstructions were generated. Images stored on PACS. All CT scanners at this facility use dose modulation, iterative reconstruction, and/or weight based d osing when appropriate to reduce radiation dose to as low as reasonably achievable (ALARA). [facility]: Dose Right [facility]: CareDose [facility]: Dose Right [facility]: Teradose 4D [facility]: Smart [employer] RADIATION DOSE: CT Rad equipment meets quality standard of care and radiation dose reduction techniq ues were employed. CTDIvol: 53.2 mGy. DLP: 1017 mGy-cm. mGy. LIMITATIONS: None. FINDINGS: VENTRICLES: Normal size and contour. CEREBRUM: No masses. No hemorrhage. No midline shift. No evidence for acute infarction. Normal gra y/white matter differentiation. No areas of low density in the white matter. CEREBELLUM: No masses. No hemorrhage. No alteration of density. No evidence for acute infarction. EXTRAAXIAL SPACES: No fluid collections. No masses. ORBITS AND GLOBE: No intra- or extraconal masses. Normal contour of globe without masses. CALVARIUM: No fracture. PARANASAL SINUSES: No fluid or mucosal thickening. SOFT TISSUES: No mass or hematoma. OTHER: No other significant finding. IMPRESSION: NORMAL BRAIN CT WITHOUT CONTRAST. EVIDENCE OF ACUTE STROKE: NO. COMMENT: Quality ID # [id number]: Final reports with documentation of one or more dose reduction techniques (e.g., Automated exposure control, adjustment of the mA and/or kV according to patient size, use of iterative reconstruction technique) TECHNICAL DOCUMENTATION: JOB ID: [id number] [employer]- All Rights Reserved Reading location - IP/workstation name: [email or web address]
[2019-02-04 12:39] LABS: ALANINE AMINOTRANSFERASE 25 U/L (9-52); ALBUMIN 3.7 g/dL (3.5-5.0); ALKALINE PHOSPHATASE 101 U/L (38-126); ANION GAP 9 (5-19); ASPARTATE AMINO TRANSFERASE 13 U/L (14-36); BILIRUBIN,DIRECT 0.3 mg/dL (0.0-0.4); BILIRUBIN,TOTAL 0.3 mg/dL (0.2-1.3); BLOOD UREA NITROGEN 33 mg/dL (7-20); CALCIUM 9.9 mg/dL (8.4-10.2); CARBON DIOXIDE 30 mmol/L (22-30); CHLORIDE 98 mmol/L (98-107); GLUCOSE 81 mg/dL (75-110); LIPASE 27.9 U/L (23-300); SODIUM 137.1 mmol/L (137-145); TOTAL PROTEIN 6.6 g/dL (6.3-8.2)
--- NOTE | 2019-02-04 12:40 | RADIOLOGY REPORT (SQ) ---
EXAM DESCRIPTION: SHOULDER LEFT 2 OR MORE VIEWS COMPLETED DATE/TIME: 02/04/2019 12:32 pm REASON FOR STUDY: Short of breath weakness tired confusion COMPARISON: None. NUMBER OF VIEWS: Three views. TECHNIQUE: Internal rotation, external rotation, and Y view images acquired of the left shoulder. LIMITATIONS: None. FINDINGS: MINERALIZATION: Normal. BONES: No acute fracture or dislocation. No worrisome bone lesions. JOINTS: No dislocation. VISUALIZED LUNGS AND RIBS: No pneumothorax. No rib fracture. SOFT TISSUES: No radiopaque foreign body. OTHER: No other significant finding. IMPRESSION: NEGATIVE STUDY OF THE LEFT SHOULDER. NO RADIOGRAPHIC EVIDENCE OF ACUTE INJURY. TECHNICAL DOCUMENTATION: JOB ID: [id number] [employer]- All Rights Reserved Reading location - IP/workstation name: [email or web address]
--- NOTE | 2019-02-04 12:44 | RADIOLOGY REPORT (SQ) ---
EXAM DESCRIPTION: CHEST 2 VIEWS COMPLETED DATE/TIME: 02/04/2019 12:32 pm REASON FOR STUDY: Short of breath weakness tired confusion COMPARISON: 01/27/2019 EXAM PARAMETERS: NUMBER OF VIEWS: two views TECHNIQUE: Digital Frontal and Lateral radiographic views of the chest acquired. RADIATION DOSE: NA LIMITATIONS: none FINDINGS: LUNGS AND PLEURA: Right lung base atelectasis versus scarring. No new focal opacities, ma sses or pneumothorax. No pleural effusion. MEDIASTINUM AND HILAR STRUCTURES: No masses or contour abnormalities. HEART AND VASCULAR STRUCTURES: Heart normal size. No evidence for failure. BONES: No acute findings. HARDWARE: None in the chest. OTHER: No other significant finding. IMPRESSION: NO ACUTE RADIOGRAPHIC FINDING IN THE CHEST. TECHNICAL DOCUMENTATION: JOB ID: [id number] [employer]- All Rights Reserved Reading location - IP/workstation name: [email or web address]
[2019-02-04 12:46] LABS: ABSOLUTE LYMPHOCYTES# (MANUAL) 6.8 10^3/uL (0.5-4.7); ABSOLUTE MONOCYTES # (MANUAL) 0.4 10^3/uL (0.1-1.4); ABSOLUTE NEUTROPHILS# (MANUAL) 13.5 10^3/uL (1.7-8.2); BASOPHILS % (MANUAL) 0 % (0-2); EOSINOPHILS % (MANUAL) 2 % (0-6); LYMPHOCYTES % (MANUAL) 30 % (13-45); MONOCYTES % (MANUAL) 2 % (3-13); SEGMENTED NEUTROPHILS % (MAN) 64 % (42-78); TOTAL CELLS COUNTED 100; TOXIC VACUOLATION PRESENT
[2019-02-04 12:47] LABS: PLATELET CLUMPS PRESENT; PLATELET COMMENT ADEQUATE; RBC MORPHOLOGY COMMENT NORMO-CYTIC/CHROMIC
--- NOTE | 2019-02-04 12:47 | RADIOLOGY REPORT (SQ) ---
EXAM DESCRIPTION: KNEE BILATERAL 1-2 VIEWS COMPLETED DATE/TIME: 02/04/2019 12:32 pm REASON FOR STUDY: Short of breath weakness tired confusion COMPARISON: None. NUMBER OF VIEWS: Two views. TECHNIQUE: AP and lateral standing bilateral knees. LIMITATIONS: None. FINDINGS: MINERALIZATION: Normal. RIGHT KNEE BONES: No acute fracture. No worrisome bone lesions. MEDIAL COMPARTMENT: No significant osteophytes. No joint space narrowing. No chondrocalcinosis. LATERAL COMPARTMENT: No significant osteophytes. No joint space narrowing. No chondrocalcinosis. PATELLOFEMORAL COMPARTMENT: No significant osteophytes. No joint space narrowing. No chondrocalc inosis. LEFT KNEE BONES: There is a comminuted fracture of the patella. The major portion the fracture is transverse. MEDIAL COMPARTMENT: No significant osteophytes. No joint space narrowing. No chondrocalcinosis. LATERAL COMPARTMENT: No significant osteophytes. No joint space narrowing. No chondrocalcinosis. PATELLOFEMORAL COMPARTMENT: No significant osteophytes. There is a joint effusion. No chondrocal cinosis. IMPRESSION: Comminuted fracture of the left patella. COMMENT: Pertinent findings on the imaging study reported as a CRITICAL RESULT to PARTHA ANDREWS NP at12:40 on 02/04/2019. Category of Critical Result: Unexpected finding. TECHNICAL DOCUMENTATION: JOB ID: [id number] [employer]- All Rights Reserved Reading location - IP/workstation name: [email or web address]
[2019-02-04 12:51] LABS: CREATINE KINASE MB 0.79 ng/mL (<4.55); TROPONIN I < 0.012 ng/mL
[2019-02-04] MEDS ORDERED: CEFAZOLIN 1 GM/D5W RTU 1 GM/50 ML RTUPB IV ONE (13:04)
--- NOTE | 2019-02-04 14:16 | ER Document Report ---
Addendum entered and electronically signed by ESTELLE TORRES DO 02/04/19 19:10: Course - Vital Signs Vital signs: Temp Pulse Resp BP Pulse Ox 98.0 F 82 13 130/66 H 86 L 02/04/19 16:29 02/04/19 16:29 02/04/19 18:01 02/04/19 18:01 02/04/19 18:01 02/04/19 19:09 Patient does have some evidence of UTI. EKG is within normal limits. Did receive some IV antibiotics and will prescribe her Keflex which should cover the urine and the skin as well. We will discharge at this time in stable condition as previously mentioned. - Laboratory Result Diagrams: 02/04/19 15:21 02/04/19 16:05 Laboratory results interpreted by me: 02/04/19 02/04/19 02/04/19 12:00 12:00 12:00 WBC 21.1 H RBC 5.63 H Hgb 16.1 H Hct 48.2 H Monocytes % (Manual) 2 L Absolute Neutrophils Abs Neuts (Manual) 13.5 H Abs Lymphs (Manual) 6.8 H BUN 33 H Hemoglobin A1c % 12.2 H AST 13 L Total Protein Albumin Urine Glucose (UA) Urine Blood Ur Leukocyte Esterase 02/04/19 02/04/19 02/04/19 13:46 15:21 16:05 WBC 14.5 H RBC Hgb Hct Monocytes % (Manual) Absolute Neutrophils 9.3 H Abs Neuts (Manual) Abs Lymphs (Manual) BUN 30 H Hemoglobin A1c % AST 13 L Total Protein 5.9 L Albumin 3.2 L Urine Glucose (UA) >=500 H Urine Blood SMALL H Ur Leukocyte Esterase MODERATE H - EKG Interpretation by Me EKG shows normal: Sinus rhythm, [place], Intervals, ST-T Waves Additional EKG results interpreted by me: 02/04/19 19:07 Inferior infarct, old. No acute findings. Laboratory 02/04/19 02/04/19 02/04/19 12:00 12:00 12:00 WBC 21.1 H RBC 5.63 H Hgb 16.1 H Hct 48.2 H MCV 86 MCH 28.6 MCHC 33.3 RDW 13.5 Plt Count 322 Total Counted 100 Seg Neutrophils % Not Reportable Seg Neuts % (Manual) 64 Lymphocytes % Not Reportable Lymphocytes % (Manual) 30 Atypical Lymphs % 2 Monocytes % Not Reportable Monocytes % (Manual) 2 L Eosinophils % Not Reportable Eosinophils % (Manual) 2 Basophils % Not Reportable Basophils % (Manual) 0 Absolute Neutrophils Not Reportable Abs Neuts (Manual) 13.5 H Absolute Lymphocytes Not Reportable Abs Lymphs (Manual) 6.8 H Absolute Monocytes Not Reportable Abs Monocytes (Manual) 0.4 Absolute Eosinophils Not Reportable Absolute Eos (Manual) 0.4 Absolute Basophils Not Reportable Abs Basophils (Manual) 0.0 Toxic Vacuolation PRESENT Clumped Platelets PRESENT Platelet Comment ADEQUATE RBC Morph Comment NORMO-CYTIC/CHROMIC Sodium 137.1 Potassium 4.0 Chloride 98 Carbon Dioxide 30 Anion Gap 9 BUN 33 H Creatinine 0.76 Est GFR ( Amer) > 60 Est GFR (Non-Af Amer) > 60 Glucose 81 POC Glucose Hemoglobin A1c % Lactic Acid Calcium 9.9 Magnesium 1.7 Total Bilirubin 0.3 Direct Bilirubin 0.3 Neonat Total Bilirubin Not Reportable Neonat Direct Bilirubin Not Reportable Neonat Indirect Bili Not Reportable AST 13 L ALT 25 Alkaline Phosphatase 101 CK-MB (CK-2) 0.79 Troponin I < 0.012 Total Protein 6.6 Albumin 3.7 Lipase 27.9 TSH Urine Color Urine Appearance Urine pH Ur Specific [place] Urine Protein Urine Glucose (UA) Urine Ketones Urine Blood Urine Nitrite Urine Bilirubin Urine Urobilinogen Ur Leukocyte Esterase Urine WBC (Auto) Urine RBC (Auto) U Hyaline Cast (Auto) Urine Bacteria (Auto) Squamous Epi Cells Auto Calcium Oxalate Cr Auto Urine Mucus (Auto) Urine Ascorbic Acid Urine Opiates Screen Urine Methadone Screen Ur Barbiturates Screen Ur Phencyclidine Scrn Ur Amphetamines Screen U Benzodiazepines Scrn Urine Cocaine Screen U Marijuana (THC) Screen 02/04/19 02/04/19 02/04/19 12:00 12:00 13:46 WBC RBC Hgb Hct MCV MCH MCHC RDW Plt Count Total Counted Seg Neutrophils % Seg Neuts % (Manual) Lymphocytes % Lymphocytes % (Manual) Atypical Lymphs % Monocytes % Monocytes % (Manual) Eosinophils % Eosinophils % (Manual) Basophils % Basophils % (Manual) Absolute Neutrophils Abs Neuts (Manual) Absolute Lymphocytes Abs Lymphs (Manual) Absolute Monocytes Abs Monocytes (Manual) Absolute Eosinophils Absolute Eos (Manual) Absolute Basophils Abs Basophils (Manual) Toxic Vacuolation Clumped Platelets Platelet Comment RBC Morph Comment Sodium Potassium Chloride Carbon Dioxide Anion Gap BUN Creatinine Est GFR ( Amer) Est GFR (Non-Af Amer) Glucose POC Glucose Hemoglobin A1c % 12.2 H Lactic Acid Calcium Magnesium Total Bilirubin Direct Bilirubin Neonat Total Bilirubin Neonat Direct Bilirubin Neonat Indirect Bili AST ALT Alkaline Phosphatase CK-MB (CK-2) Troponin I Total Protein Albumin Lipase TSH 1.80 Urine Color Urine Appearance Urine pH Ur Specific [place] Urine Protein Urine Glucose (UA) Urine Ketones Urine Blood Urine Nitrite Urine Bilirubin Urine Urobilinogen Ur Leukocyte Esterase Urine WBC (Auto) Urine RBC (Auto) U Hyaline Cast (Auto) Urine Bacteria (Auto) Squamous Epi Cells Auto Calcium Oxalate Cr Auto Urine Mucus (Auto) Urine Ascorbic Acid Urine Opiates Screen NEGATIVE Urine Methadone Screen NEGATIVE Ur Barbiturates Screen NEGATIVE Ur Phencyclidine Scrn NEGATIVE Ur Amphetamines Screen NEGATIVE U Benzodiazepines Scrn NEGATIVE Urine Cocaine Screen NEGATIVE U Marijuana (THC) Screen NEGATIVE 02/04/19 02/04/19 02/04/19 13:46 14:50 15:21 WBC 14.5 H RBC 4.87 Hgb 14.0 D Hct 41.8 MCV 86 MCH 28.8 MCHC 33.5 RDW 13.7 Plt Count 174 Total Counted Seg Neutrophils % 64.6 Seg Neuts % (Manual) Lymphocytes % 28.5 Lymphocytes % (Manual) Atypical Lymphs % Monocytes % 4.6 Monocytes % (Manual) Eosinophils % 1.4 Eosinophils % (Manual) Basophils % 0.9 Basophils % (Manual) Absolute Neutrophils 9.3 H Abs Neuts (Manual) Absolute Lymphocytes 4.1 Abs Lymphs (Manual) Absolute Monocytes 0.7 Abs Monocytes (Manual) Absolute Eosinophils 0.2 Absolute Eos (Manual) Absolute Basophils 0.1 Abs Basophils (Manual) Toxic Vacuolation Clumped Platelets Platelet Comment RBC Morph Comment Sodium Potassium Chloride Carbon Dioxide Anion Gap BUN Creatinine Est GFR ( Amer) Est GFR (Non-Af Amer) Glucose POC Glucose 99 Hemoglobin A1c % Lactic Acid Calcium Magnesium Total Bilirubin Direct Bilirubin Neonat Total Bilirubin Neonat Direct Bilirubin Neonat Indirect Bili AST ALT Alkaline Phosphatase CK-MB (CK-2) Troponin I Total Protein Albumin Lipase TSH Urine Color YELLOW Urine Appearance CLOUDY Urine pH 5.0 Ur Specific [place] 1.016 Urine Protein NEGATIVE Urine Glucose (UA) >=500 H Urine Ketones NEGATIVE Urine Blood SMALL H Urine Nitrite NEGATIVE Urine Bilirubin NEGATIVE Urine Urobilinogen NEGATIVE Ur Leukocyte Esterase MODERATE H Urine WBC (Auto) 35 Urine RBC (Auto) 2 U Hyaline Cast (Auto) 6 Urine Bacteria (Auto) 3+ Squamous Epi Cells Auto 6 Calcium Oxalate Cr Auto MODERATE Urine Mucus (Auto) RARE Urine Ascorbic Acid NEGATIVE Urine Opiates Screen Urine Methadone Screen Ur Barbiturates Screen Ur Phencyclidine Scrn Ur Amphetamines Screen U Benzodiazepines Scrn Urine Cocaine Screen U Marijuana (THC) Screen 02/04/19 02/04/19 02/04/19 15:21 16:05 16:05 WBC RBC Hgb Hct MCV MCH MCHC RDW Plt Count Total Counted Seg Neutrophils % Seg Neuts % (Manual) Lymphocytes % Lymphocytes % (Manual) Atypical Lymphs % Monocytes % Monocytes % (Manual) Eosinophils % Eosinophils % (Manual) Basophils % Basophils % (Manual) Absolute Neutrophils Abs Neuts (Manual) Absolute Lymphocytes Abs Lymphs (Manual) Absolute Monocytes Abs Monocytes (Manual) Absolute Eosinophils Absolute Eos (Manual) Absolute Basophils Abs Basophils (Manual) Toxic Vacuolation Clumped Platelets Platelet Comment RBC Morph Comment Sodium Cancelled Potassium Cancelled Chloride Cancelled Carbon Dioxide Cancelled Anion Gap Cancelled BUN Cancelled Creatinine Cancelled Est GFR ( Amer) Cancelled Est GFR (Non-Af Amer) Cancelled Glucose Cancelled POC Glucose Hemoglobin A1c % Lactic Acid 1.4 Calcium Cancelled Magnesium Total Bilirubin Cancelled Direct Bilirubin Cancelled Neonat Total Bilirubin Cancelled Neonat Direct Bilirubin Cancelled Neonat Indirect Bili Cancelled AST Cancelled ALT Cancelled Alkaline Phosphatase Cancelled CK-MB (CK-2) Troponin I < 0.012 Total Protein Cancelled Albumin Cancelled Lipase TSH Urine Color Urine Appearance Urine pH Ur Specific [place] Urine Protein Urine Glucose (UA) Urine Ketones Urine Blood Urine Nitrite Urine Bilirubin Urine Urobilinogen Ur Leukocyte Esterase Urine WBC (Auto) Urine RBC (Auto) U Hyaline Cast (Auto) Urine Bacteria (Auto) Squamous Epi Cells Auto Calcium Oxalate Cr Auto Urine Mucus (Auto) Urine Ascorbic Acid Urine Opiates Screen Urine Methadone Screen Ur Barbiturates Screen Ur Phencyclidine Scrn Ur Amphetamines Screen U Benzodiazepines Scrn Urine Cocaine Screen U Marijuana (THC) Screen 02/04/19 16:05 WBC RBC Hgb Hct MCV MCH MCHC RDW Plt Count Total Counted Seg Neutrophils % Seg Neuts % (Manual) Lymphocytes % Lymphocytes % (Manual) Atypical Lymphs % Monocytes % Monocytes % (Manual) Eosinophils % Eosinophils % (Manual) Basophils % Basophils % (Manual) Absolute Neutrophils Abs Neuts (Manual) Absolute Lymphocytes Abs Lymphs (Manual) Absolute Monocytes Abs Monocytes (Manual) Absolute Eosinophils Absolute Eos (Manual) Absolute Basophils Abs Basophils (Manual) Toxic Vacuolation Clumped Platelets Platelet Comment RBC Morph Comment Sodium 137.0 Potassium 4.2 Chloride 102 Carbon Dioxide 30 Anion Gap 5 BUN 30 H Creatinine 0.60 Est GFR ( Amer) > 60 Est GFR (Non-Af Amer) > 60 Glucose 85 POC Glucose Hemoglobin A1c % Lactic Acid Calcium 8.6 Magnesium Total Bilirubin 0.2 Direct Bilirubin 0.2 Neonat Total Bilirubin Not Reportable Neonat Direct Bilirubin Not Reportable Neonat Indirect Bili Not Reportable AST 13 L ALT 25 Alkaline Phosphatase 82 CK-MB (CK-2) Troponin I Total Protein 5.9 L Albumin 3.2 L Lipase TSH Urine Color Urine Appearance Urine pH Ur Specific [place] Urine Protein Urine Glucose (UA) Urine Ketones Urine Blood Urine Nitrite Urine Bilirubin Urine Urobilinogen Ur Leukocyte Esterase Urine WBC (Auto) Urine RBC (Auto) U Hyaline Cast (Auto) Urine Bacteria (Auto) Squamous Epi Cells Auto Calcium Oxalate Cr Auto Urine Mucus (Auto) Urine Ascorbic Acid Urine Opiates Screen Urine Methadone Screen Ur Barbiturates Screen Ur Phencyclidine Scrn Ur Amphetamines Screen U Benzodiazepines Scrn Urine Cocaine Screen U Marijuana (THC) Screen Discharge - Discharge Clinical Impression: Diabetic peripheral neuropathy, Weakness, Confusion, Obstructive sleep apnea Fall Qualifiers: Encounter type: initial encounter Qualified Code(s): W19.XXXA - Unspecified fall, initial encounter Patella fracture Qualifiers: Encounter type: initial encounter Fracture type: closed Fracture morphology: comminuted Fracture alignment: nondisplaced Laterality: left Qualified Code(s): S82.045A - Nondisplaced comminuted fracture of left patella, initial encounter for closed fracture Hypotension Qualifiers: Hypotension type: unspecified hypotension type Qualified Code(s): I95.9 - Hypotension, unspecified Diabetes Qualifiers: Diabetes mellitus type: type 2 Diabetes mellitus tap grinder insulin use: with tap grinder use Diabetes mellitus complication status: with other specified complication Qualified Code(s): E11.69 - Type 2 diabetes mellitus with other specified complication; Z79.4 - retirement (current) use of insulin Fatigue Qualifiers: Fatigue type: unspecified Qualified Code(s): R53.83 - Other fatigue Narcolepsy Qualifiers: Narcolepsy type: due to underlying condition without cataplexy Qualified Code(s): G47.429 - Narcolepsy in conditions classified elsewhere without cataplexy Nicotine dependence Qualifiers: Nicotine product type: cigarettes Substance use status: unspecified nicotine- induced disorder Qualified Code(s): F17.219 - Nicotine dependence, cigarettes, with unspecified nicotine-induced disorders UTI (urinary tract infection) Qualifiers: Urinary tract infection type: site unspecified Hematuria presence: without hematuria Qualified Code(s): N39.0 - Urinary tract infection, site not specified Condition: Good Disposition: HOME, SELF-CARE Instructions: Fractured Patella ([facility]), Knee Immobilizing Splint ([facility]), Urinary Tract Infection ([facility]) Additional Instructions: Your blood pressure is back up to normal. Your cardiac work-up today did not reveal any significant pathology. It would be very important that you follow-up with your regular doctor as well as an orthopedic surgeon to discuss what to do about your knee. We do advise that you quit smoking. Return for any worsening symptoms or concerns. Prescriptions: Cephalexin Monohydrate [Keflex 500 mg Capsule] 500 mg PO Q6H 5 Days capsule Referrals: ASHLEY FRANKLIN MD [Primary Care Provider] - Follow up as needed AMARI ANDERSON MD [ACTIVE STAFF] - Follow up in 3-5 days Scribe Attestation: Original Note: Entered by SCOT CHOI SCRIBE 02/04/19 [id number] Acting as scribe for:HELGA BURK MD ED Dizziness/Weakness <ESTELLE TORRES - Last Filed: 02/04/19 19:06> - General Mode of Arrival: Wheelchair TRAVEL OUTSIDE OF THE [place] IN LAST 30 DAYS: No <HELGA BURK - Last Filed: 02/05/19 12:59> - General Chief Complaint: Weakness Stated Complaint: LEFT SHOULDER PAIN Time Seen by Provider: 02/04/19 11:49 Primary Care Provider: ASHLEY FRANKLIN MD [Primary Care Provider] - Follow up as needed AMARI ANDERSON MD [ACTIVE STAFF] - Follow up in 3-5 days Notes: Patient is a 58-year-old female presenting to the emergency department complaining of left shoulder pain. Patient states she fell getting out of her car. at bedside states that she fell yesterday in the kitchen on her left shoulder, patient states that she barely remembers falling. at bedside states that she has been "confused, off-balance, and has been stumbling the past few months" and states she was given a cane to help her walk. Patient states that she has been "feeling very tired and sleepy the past 2 to 3 days". Patient states she hit her knees when falling out of the car. (SCOT CHOI) Patient is a 58-year-old female presenting to the emergency department complaining of left shoulder pain, bilateral knee pain, feeling confused, off balance, and falling. Patient states she fell getting out of the car going into her primary care provider's office this morning. at bedside states that she fell yesterday in the kitchen on her left shoulder, patient states that she barely remembers falling. at bedside states that she has been "confused, off-balance, and has been stumbling the past few months" and states she was given a cane to help her walk. They have been trying to get authorization for an MRI for the past 2 months. Patient states that she has been "feeling very tired and sleepy the past 2 to 3 days". She did start CPAP about 2 months ago, and that has been helping her sleep at night, but she still remains very tired during the day. Her reports that her blood sugar yesterday was 500, it usually runs in the 200-300 range. She was given insulin for this. At triage her blood pressure was recorded as 82/57, she is normally hypertensive. While I was speaking with the and relative, the patient fell sound asleep in the middle of talking to us. Further inquiry shows that she wakes up in the middle the night frequently and has to have a cigarette before she can get back to sleep. 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 Things are probably contributing to the narcolepsy she suffers from. (HELGA BURK) - Related Data Allergies/Adverse Reactions: latex Allergy (Severe, Verified 02/04/19 11:24) Anaphylaxis Past Medical History - General Information source: Patient, Relative - Social History Smoking Status: Current Every Day Smoker Frequency of alcohol use: Rare Drug Abuse: None Family History: Reviewed & Not Pertinent Patient has suicidal ideation: No Patient has homicidal ideation: No - Past Medical History Cardiac Medical History: Reports: Hx Hypertension Pulmonary Medical History: Reports: Hx Asthma, Hx COPD Endocrine Medical History: Reports: Hx Diabetes Mellitus Type 2 Musculoskeletal Medical History: Reports Hx Arthritis - NECK Psychiatric Medical History: Reports: Hx Depression Past Surgical History: Reports: Hx Appendectomy, Hx Breast Surgery - left breast cyst, Hx Section - X1, Hx Hysterectomy, Hx Neurologic Surgery - 5-6 level fusion, Hx Orthopedic Surgery - fusion of c-spine, right elbow, carpal tunnel right, - Immunizations Hx Diphtheria, Pertussis, Tetanus Vaccination: Yes Hx Pneumococcal Vaccination: 09/21/14 <HELGA BURK - Last Filed: 02/05/19 12:59> Review of Systems - Review of Systems Constitutional: See HPI, Weakness EENT: No symptoms reported Cardiovascular: No symptoms reported Respiratory: No symptoms reported Gastrointestinal: No symptoms reported Genitourinary: No symptoms reported Female Genitourinary: No symptoms reported Musculoskeletal: See HPI, Other - shoulder pain Skin: See HPI, Other - knee abrasions bilateraly Hematologic/Lymphatic: No symptoms reported Neurological/Psychological: See HPI, Confusion -: Yes All other systems reviewed and negative <HELGA BURK - Last Filed: 02/05/19 12:59> Physical Exam <HELGA BURK - Last Filed: 02/05/19 12:59> - Vital signs Vitals: Temp Pulse Resp BP Pulse Ox 97.6 F 90 16 82/57 L 91 L 02/04/19 11:28 02/04/19 11:28 02/04/19 11:28 02/04/19 11:28 02/04/19 11:28 - Notes Notes: Physical Exam: General: Alert. HEENT: Normocephalic. Atraumatic. PERRL. Extraocular movements intact. Oropharynx clear. Neck: Supple. Non-tender. Respiratory: Coarse breath sounds. No respiratory distress. Cardiovascular: Regular rate and rhythm. Abdominal: Normal Inspection. Non-tender. No distension. Normal Bowel Sounds. Back: Non-tender. No deformity or step off. Extremities: Moves all four extremities. Upper extremities: Generalized left shoulder tenderness to palpation without deformity or bruising. Lower extremities: Tenderness with palpation of the left patella with associated swelling. Right patella is non-tender but is blueish in color. Neurological: Normal cognition. AAOx4. Normal speech. Psychological: Normal affect. Normal Mood. Skin: Abrasions over the inferior patella bilaterally. Abrasions just distal to the patella on the left. (SCOT CHOI) Physical Exam: General: Alert. HEENT: Normocephalic. Atraumatic. PERRL. Extraocular movements intact. Oropharynx clear. Neck: Supple. Non-tender. Respiratory: Coarse breath sounds. No respiratory distress. Cardiovascular: Regular rate and rhythm. Abdominal: Normal Inspection. Non-tender. No distension. Normal Bowel Sounds. Back: Non-tender. No deformity or step off. Extremities: Moves all four extremities. Upper extremities: Generalized left shoulder tenderness to palpation without deformity or bruising. Lower extremities: Tenderness with palpation of the left patella with associated swelling. Right patella is non-tender but is blueish in color. Neurological: Normal cognition. AAOx4. Normal speech. Psychological: Normal affect. Normal Mood. Skin: Abrasions over the inferior patella bilaterally. Abrasions just distal to the patella on the left. (HELGA BURK) Course - Laboratory Result Diagrams: 02/04/19 15:21 02/04/19 16:05 <ESTELLE TORRES - Last Filed: 02/04/19 19:06> - Laboratory Result Diagrams: 02/04/19 15:21 02/04/19 16:05 - Diagnostic Test Radiology reviewed: Image reviewed, Reports reviewed - Chest x-ray does not show any acute findings. Left shoulder x-ray is unremarkable. Bilateral knee x-rays show a minimally displaced comminuted left patella fracture. MRI of the brain is unremarkable. - Transfer of Care Care transferred to following provider: Dr. Torres <HELGA BURK - Last Filed: 02/05/19 12:59> - Re-evaluation Re-evalutation: 02/04/19 18:11 Repeat lab work definitely improving WBC. Troponin is negative x2. Afebrile. Blood pressure is normal. Chronic hypoxemia due to tobacco abuse more than likely. No signs of significant dysfunction at this time. As mentioned in previous physicians notes patient is stable for outpatient follow-up. (ESTELLE TORRES) - Vital Signs Vital signs: Temp Pulse Resp BP Pulse Ox 98.0 F 82 15 133/63 H 88 L 02/04/19 16:29 02/04/19 16:29 02/04/19 19:00 02/04/19 19:00 02/04/19 19:00 - Laboratory Laboratory results interpreted by me: 02/04/19 02/04/19 02/04/19 12:00 12:00 12:00 WBC 21.1 H RBC 5.63 H Hgb 16.1 H Hct 48.2 H Monocytes % (Manual) 2 L Absolute Neutrophils Abs Neuts (Manual) 13.5 H Abs Lymphs (Manual) 6.8 H VBG pH BUN 33 H Hemoglobin A1c % 12.2 H AST 13 L Total Protein Albumin Urine Glucose (UA) Urine Blood Ur Leukocyte Esterase 02/04/19 02/04/19 02/04/19 13:46 15:21 16:05 WBC 14.5 H RBC Hgb Hct Monocytes % (Manual) Absolute Neutrophils 9.3 H Abs Neuts (Manual) Abs Lymphs (Manual) VBG pH BUN 30 H Hemoglobin A1c % AST 13 L Total Protein 5.9 L Albumin 3.2 L Urine Glucose (UA) >=500 H Urine Blood SMALL H Ur Leukocyte Esterase MODERATE H 02/04/19 18:50 WBC RBC Hgb Hct Monocytes % (Manual) Absolute Neutrophils Abs Neuts (Manual) Abs Lymphs (Manual) VBG pH 7.29 L BUN Hemoglobin A1c % AST Total Protein Albumin Urine Glucose (UA) Urine Blood Ur Leukocyte Esterase - Transfer of Care Notes: 02/04/19 15:12 Patient is pending repeat laboratory studies, including repeat blood work, and EKG ordered earlier today, urinalysis, additional IV fluids, and reevaluation. If there is no suggestion of an ongoing or developing infection, her blood pr essure normalizes, and there are no other abnormalities detected in the repeat lab work, she can probably be discharged on antibiotics, knee immobilizer, and follow-up with orthopedics and with her primary care provider. (HELGA BURK) Discharge <ESTELLE TORRES - Last Filed: 02/04/19 19:06> <HELGA BURK - Last Filed: 02/05/19 12:59> - Discharge Clinical Impression: Diabetic peripheral neuropathy, Weakness, Confusion, Obstructive sleep apnea Fall Qualifiers: Encounter type: initial encounter Qualified Code(s): W19.XXXA - Unspecified fall, initial encounter Patella fracture Qualifiers: Encounter type: initial encounter Fracture type: closed Fracture morphology: comminuted Fracture alignment: nondisplaced Laterality: left Qualified Code(s): S82.045A - Nondisplaced comminuted fracture of left patella, initial encounter for closed fracture Hypotension Qualifiers: Hypotension type: unspecified hypotension type Qualified Code(s): I95.9 - Hypotension, unspecified Diabetes Qualifiers: Diabetes mellitus type: type 2 Diabetes mellitus tap grinder insulin use: with jail use Diabetes mellitus complication status: with other specified complication Qualified Code(s): E11.69 - Type 2 diabetes mellitus with other specified complication Fatigue Qualifiers: Fatigue type: unspecified Qualified Code(s): R53.83 - Other fatigue Narcolepsy Qualifiers: Narcolepsy type: due to underlying condition without cataplexy Qualified Code(s): G47.429 - Narcolepsy in conditions classified elsewhere without cataplexy Nicotine dependence Qualifiers: Nicotine product type: cigarettes Substance use status: unspecified nicotine- induced disorder Qualified Code(s): F17.219 - Nicotine dependence, cigarettes, with unspecified nicotine-induced disorders UTI (urinary tract infection) Qualifiers: Urinary tract infection type: site unspecified Hematuria presence: without hematuria Qualified Code(s): N39.0 - Urinary tract infection, site not specified Condition: Good Disposition: HOME, SELF-CARE Instructions: Fractured Patella ([facility]), Knee Immobilizing Splint ([facility]), Urinary Tract Infection ([facility]) Additional Instructions: Your blood pressure is back up to normal. Your cardiac work-up today did not reveal any significant pathology. It would be very important that you follow-up with your regular doctor as well as an orthopedic surgeon to discuss what to do about your knee. We do advise that you quit smoking. Return for any worsening symptoms or concerns. Prescriptions: Cephalexin Monohydrate [Keflex 500 mg Capsule] 500 mg PO Q6H 5 Days capsule Referrals: ASHLEY FRANKLIN MD [Primary Care Provider] - Follow up as needed AMARI ANDERSON MD [ACTIVE STAFF] - Follow up in 3-5 days Scribe Attestation: 02/04/19 14:00 I personally performed the services described in the documentation, reviewed and edited the documentation which was dictated to the scribe in my presence, and it accurately records my words and actions. (SCOT CHOI) 02/04/19 14:00 I personally performed the services described in the documentation, reviewed and edited the documentation which was dictated to the scribe in my presence, and it accurately records my words and actions. (HELGA BURK) I personally performed the services described in the documentation, reviewed and edited the documentation which was dictated to the scribe in my presence, and it accurately records my words and actions.
--- NOTE | 2019-02-04 14:37 | RADIOLOGY REPORT (SQ) ---
EXAM DESCRIPTION: MRI HEAD WITHOUT COMPLETED DATE/TIME: 02/04/2019 2:25 pm REASON FOR STUDY: 2 months of confusion and off balance COMPARISON: None. TECHNIQUE: Multiplanar imaging includes non-contrasted T1, T2, FLAIR, and diffusion with ADC map seq uences. Images stored on PACS. LIMITATIONS: None. FINDINGS: ANATOMY: No anomalies. Normal vascular flow voids. Pituitary fossa normal. CSF SPACES: Normal in size and contour. No hemorrhage. CEREBRUM: Sulci and gyri normal in size and contour. Normal white matter signal on FLAIR imaging. No evidence of hemorrhage, mass, or extraaxial fluid collection. POSTERIOR FOSSA: No signal alteration. No hemorrhage. No edema, masses or mass effect. Internal soo tory canals, cerebello-pontine angles, mastoids normal. DIFFUSION IMAGING: Negative for acute or sub-acute infarction. ORBITS: No masses. Globes normal. PARANASAL SINUSES: Incidental note is made of a tiny mucous retention cyst versus polyp in the right maxillary sinus. Scattered right mastoid air cell opacities are likewise demonstrated. The remaini ng paranasal sinuses and left mastoid air cells appear clear. OTHER: No other significant finding. IMPRESSION: NORMAL MRI OF THE BRAIN WITHOUT INTRAVENOUS GADOLINIUM CONTRAST. EVIDENCE OF ACUTE STROKE: NO. TECHNICAL DOCUMENTATION: JOB ID: [id number] [email or web address]- All Rights Reserved Reading location - IP/workstation name: [email or web address]
[2019-02-04 15:20] LABS: URINE AMPHETAMINES SCREEN NEGATIVE; URINE BARBITURATES SCREEN NEGATIVE; URINE BENZODIAZEPINES SCREEN NEGATIVE; URINE COCAINE SCREEN NEGATIVE; URINE MARIJUANA (THC) SCREEN NEGATIVE; URINE METHADONE SCREEN NEGATIVE; URINE PHENCYCLIDINE SCREEN NEGATIVE
[2019-02-04 15:33] LABS: ABSOLUTE BASOPHILS # (AUTO) 0.1 10^3/uL (0.0-0.2); ABSOLUTE EOSINOPHILS # (AUTO) 0.2 10^3/uL (0.0-0.6); ABSOLUTE LYMPHOCYTES (AUTO) 4.1 10^3/uL (0.5-4.7); ABSOLUTE MONOCYTES (AUTO) 0.7 10^3/uL (0.1-1.4); ABSOLUTE NEUT (AUTO) 9.3 10^3/uL (1.7-8.2); BASOPHILS % (AUTO) 0.9 % (0-2); EOSINOPHILS % (AUTO) 1.4 % (0-6); HEMATOCRIT 41.8 % (36.0-47.0); LYMPHOCYTES % (AUTO) 28.5 % (13-45); MEAN CORPUSCULAR HEMOGLOBIN 28.8 pg (27.0-33.4); MEAN CORPUSCULAR HGB CONC 33.5 g/dL (32.0-36.0); MEAN CORPUSCULAR VOLUME 86 fl (80-97); MONOCYTES % (AUTO) 4.6 % (3-13); PLATELET COUNT 174 10^3/uL (150-450); RED BLOOD COUNT 4.87 10^6/uL (3.72-5.28); RED CELL DISTRIBUTION WIDTH 13.7 % (11.5-14.0); SEGMENTED NEUTROPHILS % (AUTO) 64.6 % (42-78); TOTAL CELLS COUNTED % (AUTO) 100 %; WHITE BLOOD COUNT 14.5 10^3/uL (4.0-10.5)
[2019-02-04 16:50] LABS: ALANINE AMINOTRANSFERASE 25 U/L (9-52); ALBUMIN 3.2 g/dL (3.5-5.0); ALKALINE PHOSPHATASE 82 U/L (38-126); ANION GAP 5 (5-19); ASPARTATE AMINO TRANSFERASE 13 U/L (14-36); BILIRUBIN,DIRECT 0.2 mg/dL (0.0-0.4); BILIRUBIN,TOTAL 0.2 mg/dL (0.2-1.3); BLOOD UREA NITROGEN 30 mg/dL (7-20); CALCIUM 8.6 mg/dL (8.4-10.2); CARBON DIOXIDE 30 mmol/L (22-30); CHLORIDE 102 mmol/L (98-107); GLUCOSE 85 mg/dL (75-110); POTASSIUM 4.2 mmol/L (3.6-5.0); TOTAL PROTEIN 5.9 g/dL (6.3-8.2)
[2019-02-04 18:55] LABS: APPEARANCE,URINE CLOUDY; BILIRUBIN,URINE NEGATIVE (NEGATIVE); CALCIUM OXALATE CRYSTALS,URINE MODERATE /HPF; COLOR,URINE YELLOW; GLUCOSE, URINE >=500 mg/dL (NEGATIVE); KETONES,URINE NEGATIVE (NEGATIVE); LEUKOCYTE ESTERASE,URINE MODERATE (NEGATIVE); NITRITE,URINE NEGATIVE (NEGATIVE); PROTEIN,URINE NEGATIVE (NEGATIVE); URINE SPECIFIC GRAVITY 1.016; UROBILINOGEN,URINE NEGATIVE mg/dL (<2.0)
[2019-02-04 19:08] LABS: VENOUS BLOOD BASE EXCESS -5.8 mmol/L; VENOUS BLOOD HCO3 20.7 mmol/L (20-32); VENOUS BLOOD PCO2 44.6 mmHg (35-63); VENOUS BLOOD PH 7.29 (7.30-7.42)
[2019-02-04 19:48] VITALS: BP 133/63
--- NOTE | 2019-02-05 08:44 | EKG REPORT ---
SEVERITY:- ABNORMAL ECG - SINUS RHYTHM INFERIOR INFARCT, OLD : Confirmed by: Don Madrid MD 05-Feb-2019 08:43:18
== END 2019-02-04 19:55 | disposition home or self-care (01) ==
LOC: ER 11:24
DX: E11.42 Type 2 diabetes mellitus with diabetic polyneuropathy (principal); E11.69 Type 2 diabetes mellitus with other specified complication; G47.429 Narcolepsy in conditions classified elsewhere without cataplexy; S82.045A Nondisplaced comminuted fracture of left patella, initial encounter for closed fracture; V48.4XXA Person boarding or alighting a car injured in noncollision transport accident, initial encounter; N39.0 Urinary tract infection, site not specified; R53.1 Weakness; R42 Dizziness and giddiness; M25.512 Pain in left shoulder; R41.0 Disorientation, unspecified; M25.561 Pain in right knee; G47.33 Obstructive sleep apnea (adult) (pediatric); I95.9 Hypotension, unspecified; Z79.4 Long term (current) use of insulin; R53.83 Other fatigue; F17.219 Nicotine dependence, cigarettes, with unspecified nicotine-induced disorders; I10 Essential (primary) hypertension; J44.9 Chronic obstructive pulmonary disease, unspecified; Z90.710 Acquired absence of both cervix and uterus; Z98.1 Arthrodesis status; Z91.040 Latex allergy status
CPT/HCPCS: 93005; 99284; 96361; 96365; 96366; 36415; 87086; 82553; 82962; 83690; 83735; 84443; 85025; 87088; 80053; 81001; 84484; 87186; 80307; 83036; 82803; 83605; 70551; 71046; 73030; 73560; 70450; 93010; L1830; J0690; J7030

== ENCOUNTER → 2019-03-02 | Outpatient (CLI) | payer MEDICARE ==
--- NOTE | 2019-03-02 13:02 | RADIOLOGY REPORT (SQ) ---
EXAM DESCRIPTION: CAROTID DOPPLER COMPLETED DATE/TIME: 03/02/2019 11:40 am REASON FOR STUDY: DIZZINESS R42 DIZZINESS AND GIDDINESS COMPARISON: None. TECHNIQUE: Grayscale ultrasound, Doppler velocity and spectra, and color Doppler images acquired of the extra-cranial carotid and vertebral arteries. Images stored on PACS. LIMITATIONS: None. FINDINGS: RIGHT CAROTID CCA Velocities: Within normal limits. ICA Velocities Peak systolic 0.91 m/s. End diastolic 0.42 m/s. Proximal ICA/CCA peak systolic ratio 1.6. Mild plaque in the distal CCA. LEFT CAROTID CCA Velocities: Within normal limits. ICA Velocities Peak systolic 0.40 m/s. End diastolic 0.14 m/s. Proximal ICA/CCA peak systolic ratio 1.4. Mild plaque in the distal CCA. VERTEBRAL ARTERIES: Antegrade flow. Normal waveforms. SUBCLAVIAN ARTERIES: Not imaged. OTHER: No other significant finding. IMPRESSION: NO HEMODYNAMICALLY SIGNIFICANT STENOSIS. COMMENT: Quality ID #195: Velocity criteria are extrapolated from the diameter data as defined by t he Society of Radiologists in Ultrasound Consensus Conference. Radiology 2003: 229; 340-346. TECHNICAL DOCUMENTATION: JOB ID: [id number] [employer]- All Rights Reserved Reading location - IP/workstation name: [email or web address] [facility]-
== END ==
LOC: SP 10:37
PROVIDERS: ATTEND Internal Medicine
DX: R42 Dizziness and giddiness (principal)
CPT/HCPCS: 93880

== ENCOUNTER → 2019-07-21 | Outpatient (CLI) | payer MEDICARE ==
--- NOTE | 2019-07-21 15:27 | WOMENS IMAGING REPORT ---
EXAM DESCRIPTION: BILAT SCREENING MAMMO W/CAD COMPLETED DATE/TIME: 07/21/2019 3:10 pm REASON FOR STUDY: Z12.31 ENCOUNTER FOR SCREENING MAMMOGRAM FOR MALIGNANT NEOPLASM OF BREAST Z12.31 ENCNTR SCREEN MAMMOGRAM FOR MALIGNANT NEOPLASM OF [place] COMPARISON: 2018 EXAM PARAMETERS: Standard craniocaudal and mediolateral oblique views of each breast recorded using digital acquisition. Read with the assistance of CAD. .[facility] - [employer] Layer Out Plate Glass Version 9.2 LIMITATIONS: None. FINDINGS: No suspicious masses, suspicious calcifications or architectural distortion. No areas of c oncern. IMPRESSION: Negative MAMMOGRAM. BIRADS 1 BREAST DENSITY: b. There are scattered areas of fibroglandular density. BIRAD: ASSESSMENT: 1 NEGATIVE RECOMMENDATION: ROUTINE SCREENING COMMENT: The patient has been notified of the results by letter per MQSA requirements. Additional no tification policies are in place for contacting patient with suspicious or incomplete findings. Quality ID #225: The [employer] recommends an annual screening mammogram for women aged 40 years or over. This facility utilizes a reminder system to ensure that all patients receive reminder letters, and/or direct phone calls for appointments. This includes reminders for routine scr eening mammograms, diagnostic mammograms, or other Breast Imaging Interventions when appropriate. Th is patient will be placed in the appropriate reminder system. TECHNICAL DOCUMENTATION: FINDING NUMBER: (1) ASSESSMENT: (1) JOB ID: [id number] [employer]- All Rights Reserved Reading location - IP/workstation name: [email or web address]
== END ==
LOC: WI 14:48
PROVIDERS: ATTEND Nurse Practitioner Family
DX: Z12.31 Encounter for screening mammogram for malignant neoplasm of breast (principal)
CPT/HCPCS: 77067